=== PATIENT | female | born 1950 | race Asian ===

== ENCOUNTER → 2017-02-09 | Outpatient (CLI) | payer OTHER, BC ==
[~2017-02-09] MED LIST: ATENOLOL25 PO; NOR5 PO; PRE3 PO; PROZ20 PO; XAN5 PO
== END | disposition home or self-care (01) ==
LOC: US 09:25
PROC: BG44ZZZ Ultrasonography of Thyroid Gland (ICD-10-PCS; principal; 2017-02-09)
DX: E04.9 Nontoxic goiter, unspecified (principal)